=== PATIENT | female | born 1965 | race African-American/Black ===

== ENCOUNTER 2018-01-21 12:01 | Emergency (ER) | payer OTHER ==
[~2018-01-21] VITALS: Ht 157.5 cm; Wt 54.9 kg
[2018-01-21 12:19] VITALS: BP 115/73
== END 2018-01-21 14:20 | disposition home or self-care (01) ==
LOC: ER 12:01
DX: F10.129 Alcohol abuse with intoxication, unspecified (principal); Z59.0 Homelessness